=== PATIENT | female | born 1985 | race Caucasian/White ===

== ENCOUNTER 2021-09-22 07:28 | Inpatient (IN) ==
[2021-09-22] MEDS ORDERED: LACTATED RINGER'S 1,000 ML IV PRN (08:09)
[2021-09-22] MEDS ORDERED: OXYTOCIN 30 UNITS/500 ML BAG IV PRN ×3 (08:09→16:48)
[2021-09-22 08:34] LABS: Hematocrit (blood only) 31.8 % (37-47); Hemoglobin 9.9 g/dL (12.0-16.0); Mean Corpuscular Hemoglobin 25.4 pg (25-34); Mean Corpuscular Hgb Conc 31.1 g/dL (32-36); Mean Corpuscular Volume 81.7 fL (80-100); Mean Platelet Volume 8.9 fL (7.4-10.4); Platelet Count 217 K/uL (130-400); RDW Coefficient of Variation 17.4 % (11.5-14.5); RDW Standard Deviation 52.1 fL (36.4-46.3); Red Blood Count 3.89 M/uL (4.2-5.4); White Blood Count 13.78 K/uL (4.8-10.8)
[2021-09-22] MEDS ORDERED: FLUARIX QUADRIVALENT 0.5 ML SYR IM ONE (08:37)
--- NOTE | 2021-09-22 11:26 | Labor Progress Brief Note ---
Date of Service September 22, 2021 Subjective Reason For Note: Routine Evaluation Assessment & Plan (1) Supervision of elderly primigravida: Plan: Progressing well. AROM clr. GBS negative. Vitals normal (2) Hypothyroidism affecting : Admission and Anticipated Discharge Date Admission Date: September 22, 2021 Physical Exam Genitourinary: Manual OB Exam: + cervical dilation 5 cm, + cervical effacement 90%, + station -1 and + amniotic fluid clear OB Exam Monitor Tracing: + external FHT monitor used, + external uterine monitor used, + category I and + normal FHT variability; no early decelerations present, no late decelerations present and no variable decelerations Results & Data ([facility]) Vital Signs (Past 12 Hours) Vital Signs Temp Pulse Resp BP 09/22/21 11:19 70 117/69 09/22/21 10:28 80 110/67 09/22/21 09:28 83 103/59 L 09/22/21 08:11 37.1 C 80 16 110/68 09/22/21 07:56 80 110/68 Coding Level of Care Code None Diagnoses Supervision of elderly primigravida O09.519 Hypothyroidism affecting O99.280; E03.9
[2021-09-22] MEDS ORDERED: LIDOCAINE 1% LOCAL 20 ML VIAL ONE (12:51)
[2021-09-22] MEDS ORDERED: ACETAMINOPHEN 325 MG TAB PO PRN (16:48)
[2021-09-22] MEDS ORDERED: HYDROCORTISONE ACETATE 25 MG SUPP PR PRN (16:48)
[2021-09-22] MEDS ORDERED: BENZOCAINE 20% AER SPR 82.5 GM CAN EXT PRN (16:48)
[2021-09-22] MEDS ORDERED: SUPERCREAM 0.870% 15 GM JAR EXT PRN (16:48)
[2021-09-22] MEDS ORDERED: DIPHTHERIA/TETANUS/PERTUSSIS 0.5 ML SYR/VIAL IM ONE (16:48)
[2021-09-22] MEDS ORDERED: IBUPROFEN 600 MG TAB PO PRN (16:48)
[2021-09-22] MEDS: DOCUSATE SODIUM 100 MG CAP PO SCH (20:05)
--- NOTE | 2021-09-22 22:29 | Delivery Summary ---
DATE OF SERVICE: 09/22/2021 PROCEDURE: Normal spontaneous vaginal delivery with second-degree perineal laceration repair. SURGEON: Stalin Luna MD. PREOPERATIVE DIAGNOSES: 1. Single intrauterine at 4 weeks for 5 days gestational age. 2. complicated by a placental hematoma. 2. Rh negative. 3. Hypothyroidism. 4. Advanced maternal age. 5. Rubella nonimmune. POSTOPERATIVE DIAGNOSES: 1. Single intrauterine at 4 weeks for 5 days gestational age. 2. complicated by a placental hematoma. 2. Rh negative. 3. Hypothyroidism. 4. Advanced maternal age. 5. Rubella nonimmune. 6. Status post procedure. ESTIMATED BLOOD LOSS: 400 mL. DRAINS: None. FLUIDS: Continuous lactated Ringer. URINE OUTPUT: Not measured. COMPLICATIONS: None. FINDINGS: A viable male with weight pending and Apgars of 8 and 9 at one and five minutes respectively. INDICATIONS: The patient is a 36-year-old G2, P0, admitted at 40 weeks 5 days' gestational age for induction of labor. At initial evaluation, the patient was found to be 4 cm dilated, 90% effaced, negative 1 station. She was started on oxytocin per normal protocol and later underwent artificial rupture of membranes for clear fluid. She progressed in labor to complete-complete, +2 station, felt the urge to push. The patient pushed for approximately 50 minutes to achieve delivery. DESCRIPTION OF PROCEDURE: The patient progressed to 10 cm dilated, 100% effaced, positive 2 station, pushed over intact perineum without anesthesia and delivered a viable male with weight and Apgars as noted above. Head of the delivered in FELIX position, restituted to right transverse. No nuchal cord was noted. Body and shoulders quickly followed. was noted to be vigorous soon after delivery and 1 minute delayed cord clamping was initiated. Cord was then double clamped and cut. remained on maternal abdomen. Cord blood was obtained. Attention was then turned to delivery of the placenta, which was delivered intact, 3-vessel cord, gentle cord traction. On inspection of the perineum, vagina, cervix, there was noted to be a second-degree perineal laceration, which was repaired in a right vaginal sidewall lacerations. These were all repaired with 3-0 Vicryl continuous running stitch with perineal laceration included with a crown stitch. Needle, sponge, and instrument counts were correct at the completion of the case. Both mother and stable in the immediate post- delivery period. Job ID: [id number] MTDD
[2021-09-23] MEDS ORDERED: bisacodyL 10 MG SUPP PR PRN
[2021-09-23] MEDS: LEVOTHYROXINE SODIUM 100 MCG TABLET PO SCH (06:02)
--- NOTE | 2021-09-23 07:51 | Obstetrical Progress Note ---
Date of Service <Everett Angel MD - Last Filed: 09/23/21 08:01> September 23, 2021 Assessment & Plan <Everett Angel MD - Last Filed: 09/23/21 08:01> (1) Encounter for care and examination after delivery: PPD #1: stable, routine management * patient voiding and ambulating without difficulty * pain well controlled on analgesia * tolerating regular diet * breast feeding * low normal blood pressures (mid to high 90s systolic); continue to monitor * observe on L&D today * reassess discharge readiness tomorrow a.m. <Stalin Luna MD - Last Filed: 09/25/21 07:37> (1) Encounter for care and examination after delivery: Subjective <Everett Angel MD - Last Filed: 09/23/21 08:01> Shantell is a 36-year-old female G 2P1 who is now PPD #1 following spontaneous vaginal delivery at 40.5 weeks. Reports feeling well overall this morning. 0/10 pain well managed on analgesics. Voiding +. Tolerating meals well and able to ambulate without difficulty. Passing gas but no bowel movements. Minimal lochia (2 pads) this morning. Breast feeding. Review of Systems Denies fever, chills, sweats Denies shortness of breath, difficulty breathing, chest pain, palpitations, chest pressure. Denies breast pain. Denies dysuria. Denies headache or changes in vision Physical Exam <Everett Angel MD - Last Filed: 09/23/21 08:01> General: Alert, oriented. No acute distress. Cardiac: Regular rate and rhythm, no murmurs/rubs/gallops. Respiratory: Clear to auscultation bilaterally a/p, no wheezes/rales/rhonchi. No increased work of breathing. Symmetrical chest rise. No respiratory distress. Abdomen: Soft, nontender, nondistended. Bowel sounds present. Uterus: Uterine fundus firm, palpable at the level of the umbilicus. Lower Extremities: No lower extremity edema or swelling. No deep calf pain. Enrique's negative bilaterally.. Results & Data ([facility]) <Everett Angel MD - Last Filed: 09/23/21 08:01> Vital Signs (Past 12 Hours) Vital Signs Temp Pulse Resp BP Pulse Ox 09/23/21 03:05 36.8 C 75 16 93/88 L 97 09/22/21 23:00 37.2 C 87 16 99/61 L 97 <Stalin Luna MD - Last Filed: 09/25/21 07:37> Co-Signing Physician Notes Patient seen and evaluated and agree with the above findings and plan. Routine care Resident Activity Tracking <Everett Angel MD - Last Filed: 09/23/21 08:01> Resident Involvement: Resident Care Provided Care Provided: OB Delivery
[2021-09-23] MEDS: FERROUS SULFATE 325 MG TAB PO SCH (08:45)
[2021-09-23] MEDS: PRENATAL VITAMIN 1 TAB PO SCH (08:45)
[2021-09-23] MEDS: DOCUSATE SODIUM 100 MG CAP PO SCH ×2 (08:45→20:00)
[2021-09-23] MEDS ORDERED: bisacodyL 5 MG TABEC PO SCH (20:00)
[2021-09-24] MEDS: LEVOTHYROXINE SODIUM 100 MCG TABLET PO SCH (06:05)
--- NOTE | 2021-09-24 08:07 | Obstetrical Progress Note ---
Date of Service September 24, 2021 Assessment & Plan (1) Encounter for care and examination after delivery: day #2 the patient is doing well she is ambulating tolerating oral diet she has no extremity pain or bleeding is minimal she has no depression discharge instructions reviewed patient was in the office in 6 weeks Subjective Review of Systems All systems reviewed & are unremarkable except as noted in HPI & below Results & Data ([facility]) Vital Signs (Past 12 Hours) Vital Signs Temp Pulse Resp BP Pulse Ox 09/23/21 23:15 98.2 F 77 16 98/61 L 98
[2021-09-24] MEDS ORDERED: MEASLES, MUMPS & RUBELLA VIRUS VIAL SQ ONE (09:19)
[2021-09-24] MEDS: PRENATAL VITAMIN 1 TAB PO SCH (09:48)
[2021-09-24] MEDS: FERROUS SULFATE 325 MG TAB PO SCH (09:48)
[2021-09-24] MEDS: DOCUSATE SODIUM 100 MG CAP PO SCH (09:49)
== END 2021-09-24 11:45 | disposition home or self-care (01) | DRG 807 ==
LOC: 4S1 07:28 → 4S2 16:14